=== PATIENT | female | born 1980 | race African-American/Black ===

== ENCOUNTER 2020-10-05 18:42 | Emergency (ER) | payer OTHER ==
[~2020-10-05] VITALS: Ht 175.3 cm; Wt 91.0 kg
[2020-10-05 18:53] VITALS: BP 111/52
[2020-10-05] MEDS ORDERED: TETRACAINE 0.5% OPHTH DROPS 4ML LEFTEYE ONE (19:15)
[2020-10-05] MEDS ORDERED: FLUORESCEIN SODIUM 1MG/STRIP LEFTEYE ONE (19:15)
== END 2020-10-05 19:57 | disposition home or self-care (01) ==
LOC: ER 18:42
DX: H10.9 Unspecified conjunctivitis (principal); F17.200 Nicotine dependence, unspecified, uncomplicated; F12.10 Cannabis abuse, uncomplicated; Z88.6 Allergy status to analgesic agent; Z98.890 Other specified postprocedural states
CPT/HCPCS: 99283

== ENCOUNTER 2021-02-06 06:43 | Emergency (ER) | payer OTHER ==
[~2021-02-06] VITALS: Ht 175.3 cm; Wt 95.0 kg
[2021-02-06 10:23] LABS: CLARITY URINE CLEAR (CLEAR); COLOR URINE YELLOW (YELLOW); KETONES URINE TRACE (NEGATIVE); LEUKOCYTE ESTERASE URINE TRACE (NEGATIVE); NITRITE URINE NEGATIVE (NEGATIVE); OCCULT BLOOD URINE TRACE (NEGATIVE); PROTEIN URINE NEGATIVE (NEGATIVE); SPECIFIC GRAVITY URINE 1.026 (1.005-1.030)
[2021-02-06] MEDS ORDERED: METR500T MT (11:24)
[2021-02-06 11:39] VITALS: BP 111/69
[2021-02-08 04:10] LABS: NEISSERIA GONORRHOEAE NAA Negative (Negative)
== END 2021-02-06 11:42 | disposition home or self-care (01) ==
LOC: ER 07:35
DX: N76.0 Acute vaginitis (principal); F12.10 Cannabis abuse, uncomplicated; Z98.890 Other specified postprocedural states; Z88.6 Allergy status to analgesic agent
CPT/HCPCS: 81003; 81025; 87210; 87491; 87591; 99284; Z7610; 99283

== ENCOUNTER 2021-10-14 08:59 | Emergency (ER) | payer MEDICAID, OTHER ==
[~2021-10-14] VITALS: Ht 175.3 cm; Wt 102.0 kg
[~2021-10-14 08:59] MED LIST: METR500T MT
[2021-10-14] MEDS ORDERED: ACETAMINOPHEN 325MG TABLET PO ONE (09:45)
[2021-10-14] MEDS ORDERED: METH-773 MT (10:48)
[2021-10-14 11:01] VITALS: BP 126/76
== END 2021-10-14 11:06 | disposition home or self-care (01) ==
LOC: ER 08:59
DX: M54.12 Radiculopathy, cervical region (principal); R07.89 Other chest pain; J45.909 Unspecified asthma, uncomplicated; Z88.6 Allergy status to analgesic agent; Z98.890 Other specified postprocedural states
CPT/HCPCS: 71045; 72040; 81025; 93005; 99284

== ENCOUNTER 2023-02-13 22:54 | Emergency (ER) | payer MEDICAID ==
[~2023-02-13] VITALS: Ht 172.7 cm; Wt 103.8 kg
[~2023-02-13 22:54] MED LIST changes: +METH-773 MT
[2023-02-13 23:04] VITALS: O2SAT 98
[2023-02-13 23:29] LABS: CLARITY URINE CLEAR (CLEAR); COLOR URINE YELLOW (YELLOW); GLUCOSE URINE NEGATIVE (NEGATIVE); KETONES URINE NEGATIVE (NEGATIVE); LEUKOCYTE ESTERASE URINE NEGATIVE (NEGATIVE); NITRITE URINE NEGATIVE (NEGATIVE); OCCULT BLOOD URINE NEGATIVE (NEGATIVE); PH URINE 6.5 (4.5-8.0); PROTEIN URINE NEGATIVE (NEGATIVE); SPECIFIC GRAVITY URINE 1.003 (1.005-1.030); UROBILINOGEN URINE 0.2 E.U./dL (0.2-1.0)
[2023-02-13 23:48] LABS: CALCIUM 9.4 mg/dL (8.5-10.1); CHLORIDE 107 mEq/L (98-107); HEMATOCRIT. 38.6 % (36.0-48.0); HEMOGLOBIN. 12.8 g/dL (12.0-16.0); INDEX HEMOLYSI 1 (1-3); INDEX ICTERIC 1 (1-4); INDEX LIPEMIC 1 (1-3); MEAN CORPUSCULAR HEMOGLOBIN 30.1 pg (28.0-32.0); MEAN CORPUSCULAR HGB CONC 33.3 g/dL (31.0-37.0); MEAN CORPUSCULAR VOLUME 90.6 fL (81.0-99.0); MEAN PLATELET VOLUME 7.3 fl (7.4-10.4); PLATELET 376 x1000/uL (130-400); POTASSIUM 3.8 mEq/L (3.5-5.1); RED BLOOD CELL COUNT 4.26 mill/uL (4.2-5.4); RED CELL DISTRIBUTION WIDTH 13.4 % (11.6-14.6); SODIUM 138 mEq/L (136-145); WHITE BLOOD COUNT 13.2 x1000/uL (4.5-11.0)
[2023-02-13 23:56] LABS: ALANINE AMINOTRANSFERASE 31 IU/L (13-61); ALBUMIN 4.1 g/dL (3.4-5.0); ASPARTATE AMINOTRANSFERASE 20 IU/L (15-37); BILIRUBIN TOTAL 0.4 mg/dL (0.1-1.0); CARBON DIOXIDE 22 mEq/L (21-32); CREATININE 0.8 mg/dL (0.6-1.3); GLUCOSE 149 mg/dL (70-105); PROTEIN TOTAL 8.1 g/dL (6.0-8.3); TROPONIN I HIGH SENSITIVITY 4 ng/L (<54); UREA NITROGEN BLOOD 11 mg/dL (7-21)
[2023-02-14 00:08] LABS: DIFFERENTIAL COMMENT 1
[2023-02-14 00:59] LABS: PLATELET ESTIMATE NORMAL
[2023-02-14 05:30] VITALS: BP 110/55; PULSE 94; RESP 18; TEMP 98.8
== END 2023-02-14 05:31 | disposition home or self-care (01) ==
LOC: ER 22:54
DX: R07.89 Other chest pain (principal); J45.909 Unspecified asthma, uncomplicated; Z88.6 Allergy status to analgesic agent; Z98.890 Other specified postprocedural states
CPT/HCPCS: 36415; 71045; 80053; 81003; 81025; 84484; 85025; 93005; 99285